=== PATIENT | female | born 1980 | race Caucasian/White ===

== ENCOUNTER 2016-09-27 15:33 | Emergency (ER) | payer OTHER ==
--- NOTE | ~2016-09-27 | CR72 ---
[facility] A Service of [facility] RADIOLOGY TEXT RESULTS PATIENT: SILVIA LAYTON LOCATION: [facility] : 80 UNIT #: [id number] AGE: [address]: Bennie Moreno MD SEX: F ORDER DR: [id number] [facility] [address] [place], [place] [address] [id number] E MR#: [id number] Acc #: [id number] NAME: SILVIA LAYTON : 1980 SEX: F STUDY DATE/TIME: 09/27/2016 16:27 UNIT: [facility] ROOM: STUDY DESCRIPTION: CR Chest Single View Portable Attending Physician: Bennie Moreno M.D. Ordering Physician: Bennie Moreno M.D. Primary Care Physician: Wagner Sanders M.D. MEDICAL IMAGING REPORT This report is preliminary unless electronic signature is present EXAM Chest x-ray portable single view HISTORY Chest pain, short of air for an hour, smoker. COMMENT Single frontal portable view of the chest timed 16:27 09/27/2016 reviewed. Heart size normal. No acute-appearing parenchymal infiltrate, acute congestive failure, pleural effusion or pneumothorax. IMPRESSION No active disease Dictated by... Ain Nguyen M.D. THIS IS AN ELECTRONICALLY VERIFIED REPORT Ani Nguyen M.D. at 09/28/2016 7:38 AM RONEY/maida TD: 09/28/2016 07:07 JOB #: [id number] MEDICAL IMAGING REPORT Page 1 of 1 COPY
--- NOTE | ~2016-09-27 | EKG ---
PATIENT: SILVIA LAYTON UNIT #: [id number] Ventricular Rate: 89 BPM Atrial Rate: 89 BPM P-R Interval: 134 ms QRS Duration: 74 ms Q-T Interval: 344 ms QTC Calculation(Bezet): 418 ms P [place]: 83 degrees Calculated R [place]: 17 degrees Calculated T [place]: 48 degrees Diagnosis Line: Normal sinus rhythm Diagnosis Line: Normal ECG Diagnosis Line: When compared with ECG of 23-JUN-2012 08:04, Diagnosis Line: Nonspecific T wave abnormality no longer evident Diagnosis Line: in Inferior leads Diagnosis Line: Confirmed by NORBERTO BROTHERS MD ([id number]) on Diagnosis Line: 09/28/2016 8:37:23 AM INTERPRETING MD: DENEEN GRISSOM
[~2016-09-27 15:33] MED LIST: ALBUTEROL17 GM INH; BACTRIM DS TABL1 TAB PO; CIPRO PO; DEPO; EC-NAPROSYN500 MG PO; FLEXERIL10 M1 PO; FLEXERIL10 MG PO; INDOMETHACIN50 MG PO; IRON1 TAB; KLONOPIN; LORTAB 5MG PO; MACRODANTIN; NAPROSYN375 MG PO; NO MEDICATIONS; NORCO1 TAB 10/3 PO; PERCOCET5/325 PO; PHENERGAN PO; PHENERGAN25 M1 PO; PHENERGAN25 MG PO; PRENATAL VITAM1 EAC1; PRENATAL1 TA1 PO; ROBAXIN PO; ROBAXIN500 MG PO; RONDEC-DM ORAL30 ML PO; TYLENOL #3 PO; ULTRAM PO; VICODIN 5/1 TAB 5/50 PO; VICODIN 5/500 T1 TAB PO; VICODIN PO; VITAMINS; WELLBUTRIN XL PO; ZITHROMAX PO; [UNRECOGNIZED DRUG - OTHER]; [UNRECOGNIZED DRUG - REMARK]
[2016-09-27 16:35] LABS: BASOPHIL# 0.1 X10e3 (0-0.3); BASOPHIL% 1.2 % (0-2.5); EOSINOPHIL# 0.1 X10e3 (0-0.7); EOSINOPHIL% 1.7 % (0.0-7.0); HEMATOCRIT 43.2 % (35.0-45.0); HEMOGLOBIN 14.6 gm/dL (12.0-16.0); LYMPHOCYTE# 2.3 X10e3 (1.0-3.5); LYMPHOCYTE% 34.2 % (17.0-45.0); MEAN CELL VOLUME 87.6 FL (83-96); MEAN CORPUSCULAR HEMOGLOBIN 29.7 PG (28-34); MEAN CORPUSCULAR HGB CONC 33.9 g/dL (30-36); MEAN PLATELET VOLUME 8.4 FL (6.5-11.5); MONOCYTE# 0.5 X10e3 (0-1.0); MONOCYTE% 7.6 % (3.0-12.0); NEUTROPHIL# 3.7 X10e3 (1.5-7.1); NEUTROPHIL% 55.3 % (40-75); PLATELET COUNT 274 X10e3 (140-420); RED BLOOD COUNT 4.93 X10e (3.90-5.30); RED CELL DISTRIBUTION WIDTH 14.1 % (11.0-15.5); WHITE BLOOD COUNT 6.8 X10e3 (4.0-10.5)
[2016-09-27 16:36] LABS: DIFF IND NO
[2016-09-27 16:54] LABS: POC - CKMB <1.0 ng/mL (0.0-7.9); POC - TROPONIN <0.05 ng/mL (<=0.05)
[2016-09-27 16:56] LABS: ALBUMIN SERUM 3.9 g/dL (3.5-5.0); BILIRUBIN, DIRECT 0.1 mg/dL (0.0-0.2); BILIRUBIN,INDIRECT 0.4 mg/dL (0.0-0.9); BILIRUBIN,TOTAL 0.5 mg/dL (0.2-2.0); CALCIUM SERUM 9.1 mg/dL (8.4-10.2); CREATININE SERUM 0.7 mg/dL (0.6-1.4); GLOM FILT RATE Estimated 111.5 mL/min (>60); POTASSIUM 4.1 mmol/L (3.5-5.1); PROTEIN TOTAL SERUM 7.1 g/dL (6.0-8.3)
[2016-09-27 18:21] LABS: POC - CKMB <1.0 ng/mL (0.0-7.9); POC - TROPONIN <0.05 ng/mL (<=0.05)
== END 2016-09-27 18:38 | disposition home or self-care (01) ==
LOC: CED 15:33
PROVIDERS: Emergency Medicine
DX: R09.1 Pleurisy (principal); R07.9 Chest pain, unspecified; F17.200 Nicotine dependence, unspecified, uncomplicated; J45.909 Unspecified asthma, uncomplicated; Z90.49 Acquired absence of other specified parts of digestive tract; Z88.5 Allergy status to narcotic agent; Z88.8 Allergy status to other drugs, medicaments and biological substances; Z91.040 Latex allergy status
CPT/HCPCS: 36415; 71010; 80048; 80076; 82553; 84484; 85025; 85379; 93005; 96374; 99284; J1885